=== PATIENT | male | born 1940 | race Hispanic/Latino ===

== ENCOUNTER 2018-03-09 08:30 | Day surgery (SDC) | payer OTHER ==
[2018-03-09] VITALS (7 sets, daily range): BP systolic 137–171; BP diastolic 56–95
[2018-03-09] MEDS ORDERED: LOSA25TA21 PO (09:24)
[2018-03-09 09:25] LABS: CREATININE 0.9 mg/dL (0.5-1.5); POTASSIUM 4.7 mmol/L (3.5-5.1)
[2018-03-09 09:31] LABS: INR 0.98 (0.85-1.15); PARTIAL THROMBOPLASTIN TIME 24.6 SEC (26.3-35.5); PROTHROMBIN TIME 10.3 SEC (9.6-11.6)
[2018-03-09 09:32] LABS: BASOPHILS % (AUTO) 0.5 % (0.0-5.0); EOSINOPHILS % (AUTO) 2.2 % (0.0-8.0); HEMATOCRIT 36.4 % (42-54); LYMPHOCYTES % (AUTO) 42.3 % (21.0-51.0); MEAN CORPUSCULAR HGB CONC 34.1 g/dL (32.0-36.0); MONOCYTES % (AUTO) 6.9 % (3.0-13.0); NEUTROPHILS % (AUTO) 48.1 % (40.0-77.0); NUCLEATED RED BLOOD CELLS 0.1 % (0.0-0.19); PLATELET COUNT (AUTO) 159 K/uL (130-400); RED BLOOD CELL COUNT(AUTO) 4.28 MIL/uL (4.50-6.20); WHITE BLOOD COUNT (AUTO) 4.7 K/uL (4.8-10.8)
[2018-03-09] MEDS ORDERED: SODIUM CHLORIDE 0.9% 1000ML 1,000 ML IV ONE (10:23)
== END 2018-03-09 15:40 | disposition home or self-care (01) ==
LOC: DAH 08:30
PROVIDERS: ATTEND Emergency Medicine Emergency Medical Services
DX: C18.9 Malignant neoplasm of colon, unspecified (principal); F43.10 Post-traumatic stress disorder, unspecified; I10 Essential (primary) hypertension; N40.1 Benign prostatic hyperplasia with lower urinary tract symptoms; G31.84 Mild cognitive impairment of uncertain or unknown etiology; Z79.899 Other long term (current) drug therapy; Z90.49 Acquired absence of other specified parts of digestive tract; Z98.890 Other specified postprocedural states; E55.9 Vitamin D deficiency, unspecified; D64.9 Anemia, unspecified; M19.90 Unspecified osteoarthritis, unspecified site; F41.9 Anxiety disorder, unspecified; F32.9 Major depressive disorder, single episode, unspecified; Z87.891 Personal history of nicotine dependence; G62.9 Polyneuropathy, unspecified; G47.33 Obstructive sleep apnea (adult) (pediatric); E78.00 Pure hypercholesterolemia, unspecified; Z79.01 Long term (current) use of anticoagulants
CPT/HCPCS: 36415; 47000; 80048; 85025; 85610; 85730; 88307; 88313; J7030

== ENCOUNTER 2018-03-10 09:11 | Day surgery (SDC) | payer OTHER ==
[2018-03-09 09:21] VITALS: BP 156/81
[~2018-03-10] VITALS: Ht 175.3 cm; Wt 76.2 kg
[~2018-03-10 09:11] MED LIST: LOSA25TA21 PO
[2018-03-10 09:35] VITALS: BP 149/57
[2018-03-10] MEDS ORDERED: SODIUM CHLORIDE 0.9% 1000ML 1,000 ML IV ONE (09:45)
[2018-03-10] MEDS ORDERED: LIDOCAINE HCL/EPINEPHRINE 50 ML VIAL IJ ONE (14:47)
[2018-03-10] MEDS ORDERED: LIDOCAINE HCL 1% MDV 50ML VIAL ONE (14:47)
[2018-03-10] MEDS ORDERED: MIDAZOLAM HCL 1 MG/ML 2ML VIAL ONE (15:11)
[2018-03-10] MEDS ORDERED: FENTANYL CITRATE PF 50 MCG/1 ML 2ML VIAL ONE (15:11)
[2018-03-10] MEDS ORDERED: OCTYL 2-CYANOACRYLATE 1 EACH TP ONE (15:32)
[2018-03-10 15:55] VITALS: BP 173/70
[2018-03-10 16:10] VITALS: BP 162/66
[2018-03-10 16:25] VITALS: BP 165/68
[2018-03-10 16:50] VITALS: BP 169/70
== END 2018-03-10 17:01 | disposition home or self-care (01) ==
LOC: DAH 09:11
PROVIDERS: ATTEND Emergency Medicine Emergency Medical Services
DX: Z45.2 Encounter for adjustment and management of vascular access device (principal); I10 Essential (primary) hypertension; E55.9 Vitamin D deficiency, unspecified; D64.9 Anemia, unspecified; M19.90 Unspecified osteoarthritis, unspecified site; F41.9 Anxiety disorder, unspecified; F32.9 Major depressive disorder, single episode, unspecified; F43.10 Post-traumatic stress disorder, unspecified; Z90.49 Acquired absence of other specified parts of digestive tract; Z98.890 Other specified postprocedural states; Z80.0 Family history of malignant neoplasm of digestive organs; Z79.899 Other long term (current) drug therapy; D69.6 Thrombocytopenia, unspecified
CPT/HCPCS: 36561; 77001; A4606; C1788; C1894; J1644; J2250; J3010; J3490; J7030; 99156; 99157